=== PATIENT | female | born 1950 | race Caucasian/White ===

== ENCOUNTER → 2016-10-28 | Outpatient (CLI) | payer MEDICARE, MEDICAID ==
[~2016-10-28] MED LIST: ACID1TAB13 PO; AMIT25TA9 PO; ASPI81TA2 PO; ATOR20TA PEG; BUDE0.5A AEROSOL; CHLO500T2 PO; CHOL378P8; CIPR-280 PO; DIGO250T85 PO; DILT180C11 PO; FURO-154 PO; GABA300C PO; GLIM1TAB2 PO; GUAI600T PO; HYDR-4072 PO; INSU100V SQ; INSU100V12 SQ; IPRA3AMP AEROSOL; LISI-625 PO; LORA-204 PO; MAGN400T6 PO; NICO1PAT15 TD; NYST5ORA7 PO; Nicotine TD; PANT40TA PO; PRED10TA PO; PROM-21 PO; RIVA15TA PO; RIVA20TA PO; SIMV40TA82 PO
--- NOTE | 2016-10-28 13:24 | DI ---
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 Coronal and sagittal two-dimensional reformats. Automated Exposure Control and Iterative Reconstruction dose reducing techniques were utilized. Findings: Lungs are stable with severe subpleural fibrosis and irregular pleural thickening in the left apex. Heterogeneous mosaic attenuation of the lung fuentes consistent with air trapping. No pneumonia or pleural effusion. No discrete new pulmonary nodule or mass. The central airways are patent. Stable mediastinal lymph nodes including prevascular, AP window and right paratracheal nodes.. Heart size is unchanged. Prior CABG. No pericardial effusion. The upper abdomen shows no acute findings. Adenomatous hyperplasia of the adrenal glands. Bone windows show no acute findings. Impression: Stable appearance of the chest with severe fibrosis and mediastinal adenopathy. .
== END ==
LOC: IMA 12:49
PROVIDERS: ATTEND Internal Medicine Hematology & Oncology
DX: C34.32 Malignant neoplasm of lower lobe, left bronchus or lung (principal); R59.0 Localized enlarged lymph nodes; D50.9 Iron deficiency anemia, unspecified; D89.2 Hypergammaglobulinemia, unspecified; J44.1 Chronic obstructive pulmonary disease with (acute) exacerbation; R97.0 Elevated carcinoembryonic antigen [CEA]

== ENCOUNTER → 2016-11-04 | Outpatient (CLI) | payer MEDICARE, MEDICAID ==
[2016-11-04 12:53] LABS: BASOPHILS # (AUTO) 0.1 T/MM3 (0-0.2); BASOPHILS % (AUTO) 0.4 % (0-2); EOSINOPHILS # (AUTO) 0.6 T/MM3 (0-0.5); HGB - HEMOGLOBIN 13.3 GM/DL (12-16); IMMATURE GRANULOCYTE # (AUTO) 0.06 T/MM3 (0.00-0.03); IMMATURE GRANULOCYTE % (AUTO) 0.4 % (0.0-0.5); LYMPHOCYTES # (AUTO) 4.7 T/MM3 (1-4.8); MEAN CORPUSCULAR HGB 30.9 UUG (26-34); MEAN CORPUSCULAR HGB CONC(MCHC 32.4 GM/DL (31-37); MEAN CORPUSCULAR VOLUME 95.3 UM3 (80-100); MEAN PLATELET VOLUME 10.3 UM3 (9.4-12.4); MONOCYTES % (AUTO) 7.1 % (0-9.0); NEUTROPHILS #(AUTO)-ABSOLUTE 7.5 T/MM3 (1.8-7.7); NEUTROPHILS % (AUTO) 54.1 % (33-66); WBC - WHITE BLOOD COUNT 13.9 T/MM3 (4.5-11.0)
[2016-11-04 13:02] LABS: ALBUMIN 3.7 G/DL (3.5-5.0); ALKALINE PHOSPHATASE 96 U/L (38-126); ALT (SGPT) 20 U/L (9-52); ANION GAP 13 MEQ/L (5-15); AST (SGOT) 11 U/L (14-36); BUN/CREATININE RATIO 13 RATIO (6-26); CALCIUM 8.7 MG/DL (8.4-10.2); CHLORIDE 103 MEQ/L (98-107); CO2 - CARBON DIOXIDE 26 MEQ/L (22-30); CREATININE 0.9 MG/DL (0.7-1.2); GLOMERULAR FILTRATION RATE 63; GLUCOSE 153 MG/DL (65-110); LDH 419 U/L (313-618); MAGNESIUM 1.9 MG/DL (1.6-2.3); POTASSIUM 3.6 MEQ/L (3.6-5); SODIUM 142 MEQ/L (134-144); TOTAL PROTEIN 7.3 G/DL (6.3-8.2)
[2016-11-04 13:11] LABS: IGA - IMMUNOGLOBULIN A 313.43 MG/DL (70-400); IGG - IMMUNOGLOBULIN G 1079.92 MG/DL (700-1600); IGM - IMMUNOGLOBULIN M 96.56 MG/DL (40-230)
== END ==
LOC: LAB 12:36
PROVIDERS: ATTEND Internal Medicine Hematology & Oncology
DX: C34.32 Malignant neoplasm of lower lobe, left bronchus or lung (principal); D50.9 Iron deficiency anemia, unspecified; D89.2 Hypergammaglobulinemia, unspecified; J44.1 Chronic obstructive pulmonary disease with (acute) exacerbation; R97.0 Elevated carcinoembryonic antigen [CEA]
CPT/HCPCS: 36415; 80053; 82784; 83615; 83735; 83883; 84155; 84165; 85025; 86334